=== PATIENT | male | born 1950 | race Caucasian/White ===

== ENCOUNTER 2017-09-02 12:27 | Outpatient (CLI) | payer OTHER ==
--- NOTE | 2017-09-02 22:05 | MRI ---
EXAM: Thoracic spine MRI without contrast. HISTORY: T12 compression fracture and pain. COMPARISON: Chest radiograph 04/04/2017 and lumbar spine MRI 09/02/2017. TECHNIQUE: Multiplanar, multisequence MR images were acquired of the thoracic spine without contrast . The study is degraded by decreased [id number] which limits spatial and contrast resolution. FINDINGS: 12 rib-bearing thoracic vertebra are present. The L1 level is not well seen. There is mi nor cervicothoracic levoscoliosis centered at T2-3 and minor thoracic scoliosis, convex right at T5-6 and convex left at T10-11. There is mild chronic anterior and right lateral wedging of T7. The tho racic vertebra are generally normal in height and intrinsic bone marrow signal. At T12, there is a 2 0% acute anterior wedge compression deformity of T12 with irregular concavity superior endplate and f ractures extend from the anterior superior cortex to the posterior superior cortex and into the super ior and inferior endplates. Bright STIR signal edema is present in the anterior superior corner of t he T12 vertebra and this is compatible with a mild acute burst fracture. Small ventral and lateral o steophytes are present in the thoracic spine and there is poorly visualized desiccation of the thorac ic intervertebral discs. Canal diameter is developmentally narrow and there is dorsal epidural lipom atosis which narrows the posterior thecal sac from T3 to T10. This produces mild T3-4 to T6-7 and T1 0-11, mild to moderate T7-8 and minor T8-9 central canal stenosis. The study is degraded by motion an d small disc herniations may be missed. The partially visualized liver, spleen and left kidney are unremarkable. A simple right renal cyst i s present. Metallic artifact is present compatible with a median sternotomy. T1-2: The intervertebral disc is normal. There is probable mild right and mild-moderate left neural foraminal stenosis. T2-3: The intervertebral disc is normal. There is mild bilateral facet hypertrophy and mild to mode rate right foraminal stenosis. T3-4: There is a minor posterior disc bulge and right greater than left facet hypertrophy with moder ate bilateral foraminal stenosis. AP diameter of the thecal sac is 9.4 mm. T4-5: The intervertebral disc is normal and bilateral facet hypertrophy is present. There is probab le moderately severe bilateral foraminal stenosis. T5-6: The intervertebral disc is normal. Bilateral facet hypertrophy is present and there is probab le moderately severe bilateral foraminal stenosis and mild spinal stenosis. AP diameter of the theca l sac is 9.3 mm. T6-7: The intervertebral disc is normal. Dorsal epidural lipomatosis and bilateral facet and ligame ntum flavum hypertrophy is present. There is mild central canal stenosis and moderate bilateral fora burt stenosis. AP diameter of the thecal sac is 9.1 mm. T7-8: There is a posterior disc osteophyte complex and probable small superimposed central disc prot rusion that mildly indents the thoracic cord. Ligamentum flavum hypertrophy is present and there is bilateral hypertrophic facet arthropathy. This causes mild to moderate central canal stenosis and pr obable severe bilateral foraminal stenosis. AP diameter of the thecal sac is 6.7 mm. T8-9: The intervertebral disc is normal. Bilateral hypertrophic facet arthropathy is present. Ther e is severe bilateral foraminal stenosis and mild central canal stenosis. AP diameter of the thecal sac is 9.4 mm. T9-10: The intervertebral disc is normal. Bilateral facet and ligamentum flavum hypertrophy is pres ent. There is moderately severe bilateral foraminal stenosis. T10-11: There is a minor dorsal spondylotic ridge and bilateral facet and ligamentum flavum hypertro phy which causes moderately severe bilateral neural foraminal stenosis and mild central canal stenosi s. AP diameter of the thecal sac is 8.7 mm. T11-12: There is an acute poorly visualized right anterior wedge compression deformity of T12 with i rregular concavity of the superior endplate. There is anterior cortical buckling with fractures that extend from the anterior cortex to the posterior cortex with minor posterior cortical bowing and fro m the anterior cortex into the superior and inferior endplates with irregular concavity of the superi or and inferior endplates. Bright STIR signal edema is present between beneath the anterior corner o f the T12 vertebra consistent with an acute T12 burst fracture with 20% anterior wedging of the verte bra. There is moderate bilateral foraminal stenosis. T12-L1: The intervertebral disc is normal. There is mild left foraminal stenosis. IMPRESSION: 1. Unexpected result. Acute 20% anterior wedge compression deformity of T12 with posterior cortical bowing. 2. Mild thoracic degenerative spondylosis which in this patient with dorsal epidural lipomatosis and a developmentally narrow canal causes minor T8-9, mild T3-4 to T6-7 and T10-11 and mild to moderate T7-8 central canal stenosis. 3. Small central disc protrusion T7-8. 4. Multilevel foraminal stenosis.
--- NOTE | 2017-09-02 22:25 | MRI ---
EXAM: Lumbar spine MRI without contrast. HISTORY: Low back pain. COMPARISON: Thoracic spine MRI 09/02/[address] abdomen 08/18/2009. TECHNIQUE: Multiplanar, multisequence MR images were acquired lumbar spine without contrast. FINDINGS: Five non-rib bearing lumbar vertebra are present. There is minor lower lumbar dextroscoli osis and a trace anterolisthesis of L3 on L4 and L4 on L5. There is 3 mm retrolisthesis of L5 on S1. There is a mild acute right anterior wedge compression deformity of T12 with 20% loss of height of the vertebra anteriorly and fractures that extend from the anterior superior and inferior cortex into the superior endplate, from the anterior cortex to the posterior cortex and from the superior endpla te to the inferior endplate. Bright STIR signal edema is present beneath the anterior superior endpl ate and this is consistent with a mild acute burst fracture. Intrinsic bone marrow signal is mildly heterogeneous. Bridging ventral and lateral osteophytes are present in the lower thoracic and lumbar spine and there is disc space narrowing disc desiccation at T11-12, L3-4, L4-5 and L5, S1. There is irregular concavity of the L3 inferior endplate with a chronic Schmorl's node. Conus medullaris ends at the top of L2 and has normal signal intensity. Canal diameter is developmentally narrow due to c ongenitally short pedicles. This produces crowding of the nerve roots from L1-2 to L4-5. The partially visualized liver, spleen and left kidney are unremarkable. There is a 4.3 cm x 1.4 cm right renal cyst. The abdominal aortic is ectatic and focally dilates at L3-4 to 2.7 cm AP by 4 cm T X. The aorta remains dilated to the bifurcation and there is dilatation of both common iliac arteries and both internal and external iliac arteries. Stents extend from the distal abdominal aorta into t he common iliac arteries bilaterally. The right common iliac artery measures 4.7 cm AP by 6 cm TX and the left common iliac artery 4.2 cm AP by 3.9 cm TX. L1-2: The intervertebral disc is normal. There is minor bilateral facet arthropathy and mild ligame ntum flavum hypertrophy with with minor left neural foraminal stenosis. L2-3: There is a minor spondylotic disc bulge with marginal osteophytes that is asymmetric to the le ft and mild bilateral hypertrophic facet arthropathy and ligamentum flavum hypertrophy. There is, do rsal epidural fat and these findings cause mild central canal stenosis with crowding of the nerve ayesha ts and minor right and mild left neural foraminal stenosis. AP diameter of the thecal sac is 8.2 mm. L3-4: There is anterolisthesis of L3 on L4 and there is a diffuse disc bulge that is asymmetric to t he right with a probable small right foraminal disc protrusion and moderate left and mild to moderate right hypertrophic facet arthropathy and ligamentum flavum hypertrophy. A small left facet effusion is present and these findings cause moderately severe central canal stenosis and mild to moderate bi lateral foraminal stenosis. L4-5: There is a mild diffuse spondylotic disc bulge and severe bilateral hypertrophic facet arthrop athy and ligamentum flavum hypertrophy. This causes severe central canal stenosis and moderate right and mild to moderate left neural foraminal stenosis. AP diameter of the thecal sac is 4.7 mm. L5-S1: There is a diffuse spondylotic ridge that is asymmetric to the left with moderate left far la teral endplate osteophytes. There are postoperative right hemilaminectomy and partial medial facetec gaurav changes. Hazy hypointense T1 epidural fibrosis is present. Left greater than right hypertrophi c facet arthropathy is noted and there is mild right and moderate left neural foraminal stenosis. Th ere is no central canal stenosis. Fatty infiltration is present in the medial posterior paraspinous muscles from L5 to the mid sacrum. IMPRESSION: 1. Mild acute 20% right anterior wedge compression deformity T12. 2. Mild lumbar degenerative spondylosis which in this patient with a developmentally narrow canal ca uses mild L2-3, moderately severe L3-4 and severe L4-5 central canal stenosis. 3. Moderate right and mild to moderate left L4-5 and moderate left L5-S1 neural foraminal stenosis. 4. Dilated aorta which at L3-4 measures 2.7 cm AP by 4 cm TX. Aortic dilatation extends into both c ommon iliac arteries and both internal and external iliac arteries. Stents extend from the distal ab dominal aorta into the common iliac arteries bilaterally. The right common iliac artery is dilated an d measures 0.7 cm AP by 6 cm TX the left common iliac artery 4.2 cm AP by 3.9 cm TX. 5. Status post right L5-S1 microdiskectomy without central canal stenosis.
== END 2017-09-02 12:28 | disposition home or self-care (01) ==
LOC: RAD 12:27
DX: M48.54XA Collapsed vertebra, not elsewhere classified, thoracic region, initial encounter for fracture (principal); M54.5 Low back pain